=== PATIENT | male | born 1995 | race Caucasian/White ===

== ENCOUNTER 2018-04-08 14:11 | Inpatient (IN) | payer BC ==
[2018-04-08] MEDS ORDERED: NS 1,000 ML IV ONE (15:12)
--- NOTE | 2018-04-08 15:12 | EDPHY ---
H & P Stated Complaint: Blood in stool/abd pain Time Seen by Provider: 04/08/18 15:12 HPI/ROS: HPI CHIEF COMPLAINT: Abdominal pain, GI bleed. HISTORY OF PRESENT ILLNESS: 22-year-old male presents emergency room with abdominal pain. He reports over the past 2-3 weeks he has had bright red blood per rectum almost every time use the bathroom. Form stools. His bright red blood per rectum is gotten worse over the past 3 days. He is due to follow up with GI on May 12 for colonoscopy. He initially went to his primary care doctor for this problem referred to GI GI salt him and scheduled a colonoscopy for May 12. Patient denies any chest pain or shortness of breath. Main complaint blood red blood per rectum. Also distally complains of abdominal pain. Past Medical History: Denies medical history Past Surgical History: Denies surgical history Social History: Denies drugs alcohol tobacco. [employer] student. Family History: Noncontributory ROS REVIEW OF SYSTEMS: 10 Systems were reviewed and negative with the exception of the elements mentioned in the history of present illness. Exam Constitutional nontoxic appearance, triage nursing summary reviewed, vital signs reviewed, awake/alert. Eyes normal conjunctivae and sclera, EOMI, PERRLA. HENT normal inspection, atraumatic, moist mucus membranes, no epistaxis, neck supple/ no meningismus, no raccoon eyes. Respiratory clear to auscultation bilaterally, normal breath sounds, no respiratory distress, no wheezing. Cardiovascular rate normal, regular rhythm, no murmur, no edema, distal pulses normal. Gastrointestinal mild tender palpation periumbilical, no rebound, no guarding, normal bowel sounds, no distension, no pulsatile mass. Genitourinary no CVA tenderness. Musculoskeletal no midline vertebral tenderness, full range of motion, no calf swelling, no tenderness of extremities, no meningismus, good pulses, neurovascularly intact. Skin pink, warm, & dry, no rash, skin atraumatic. Neurologic awake, alert and oriented x 3, AAOx3, moves all 4 extremities equally, motor intact, sensory intact, CN II-XII intact, normal cerebellar, normal vision, normal speech. Psychiatric normal mood/affect. Heme/Lymph/Immune no lymphadenopathy. Differential Diagnosis: Differential diagnosis includes but is not limited to and in no particular order: Bowel obstruction, appendicitis, gallbladder disease, diverticulitis, colitis, enteritis, perforated viscus, gastritis, GERD , esophagitis, urinary tract infection, pyelonephritis, kidney stones, acute GI bleed. Medical Decision Making: Plan for this patient IV establishment with blood draw , type and screen, IV fluids, CT scan abdomen pelvis with IV contrast. Re-evaluation: CT scan abdomen pelvis with IV contrast called to me by Dr. Brock Jonas. This shows duodenal inflammation on CT. No evidence of acute appendicitis. No significant colitis seen on CT. Patient was able to provide a stool sample. Mainly bloody. Occult stool bloody. Plan for hospital admission. Patient all about a give us a bloody stool. Mainly blood bright red blood. Patient H&H are stable. Patient's vital signs are hemodynamically stable no acute distress. Patient resting comfortably. Abdomen soft nontender. Blood work and CT reviewed Recommend hospital admission for ongoing GI bleed I have consult Dr. Hernandez. He agrees for admission. Patient agrees for admission Will consult GI. I have consult Dr. Rider is at 6:25 p.m.. Will consult on the patient. Patient updated agrees for admission. Source: Patient - Personal History Current Tetanus/Diphtheria Vaccine: Yes - Medical/Surgical History Hx Asthma: No Hx Chronic Respiratory Disease: No Hx Diabetes: No Hx Cardiac Disease: No Hx Renal Disease: No Hx Cirrhosis: No Hx Alcoholism: No Other PMH: Denies - Social History Smoking Status: Never smoked Constitutional: Initial Vital Signs Temperature (C) 36.9 C 04/08/18 14:24 Heart Rate 102 H 04/08/18 14:24 Respiratory Rate 18 04/08/18 14:24 Blood Pressure 155/90 H 04/08/18 14:24 O2 Sat (%) 100 04/08/18 14:24 O2 Delivery Mode Room Air Allergies/Adverse Reactions: No Known Allergies Allergy (Unverified 04/08/18 14:26) Home Medications: Medication Instructions Recorded NK [No Known Home Meds] 04/08/18 Medical Decision Making - Diagnostics Imaging Results: Imaging Impressions Abdomen CT 04/08/18 15:17 Impression: Transmural wall thickening of the third and fourth portions of the duodenum and proximal jejunum, potentially related to enteritis. No peritoneal free fluid or air. Results called to Dr. Ozzy Lambert at the time of the interpretation. - Data Points Laboratory Results: Laboratory Results 04/08/18 15:17 04/08/18 15:17 04/08/18 04/08/18 04/08/18 17:25 15:20 15:17 WBC RBC Hgb Hct MCV MCH MCHC RDW Plt Count MPV Neut % (Auto) Lymph % (Auto) [place] % (Auto) Eos % (Auto) Baso % (Auto) Nucleat RBC Rel Count Absolute Neuts (auto) Absolute Lymphs (auto) Absolute Monos (auto) Absolute Eos (auto) Absolute Basos (auto) Absolute Nucleated RBC Immature Gran % Immature Gran # PT INR APTT VBG Lactic Acid Sodium Potassium Chloride Carbon Dioxide Anion Gap BUN Creatinine Estimated GFR Glucose Calcium Total Bilirubin Conjugated Bilirubin Unconjugated Bilirubin AST ALT Alkaline Phosphatase Total Protein Albumin Lipase Urine Color YELLOW Urine Appearance CLEAR Urine pH 6.0 (5.0-7.5) Ur Specific [place] 1.025 (1.002-1.030) Urine Protein NEGATIVE (NEGATIVE) Urine Ketones NEGATIVE (NEGATIVE) Urine Blood NEGATIVE (NEGATIVE) Urine Nitrate NEGATIVE (NEGATIVE) Urine Bilirubin NEGATIVE (NEGATIVE) Urine Urobilinogen NEGATIVE EU EU (0.2-1.0) Ur Leukocyte Esterase NEGATIVE (NEGATIVE) Urine Glucose NEGATIVE (NEGATIVE) Stool Occult Bld Scrn POSITIVE H (NEGATIVE) Patient ABO/Rh A POSITIVE Antibody Screen NEGATIVE 04/08/18 04/08/18 04/08/18 15:17 15:17 15:17 WBC 7.05 10^3/uL 10^3/uL (3.80-9.50) RBC 4.79 10^6/uL 10^6/uL (4.40-6.38) Hgb 15.0 g/dL g/dL (13.7-17.5) Hct 43.3 % % (40.0-51.0) MCV 90.4 fL fL (81.5-99.8) MCH 31.3 pg pg (27.9-34.1) MCHC 34.6 g/dL g/dL (32.4-36.7) RDW 13.1 % % (11.5-15.2) Plt Count 289 10^3/uL 10^3/uL (150-400) MPV 9.1 fL fL (8.7-11.7) Neut % (Auto) 62.0 % % (39.3-74.2) Lymph % (Auto) 21.3 % % (15.0-45.0) [place] % (Auto) 12.5 % % (4.5-13.0) Eos % (Auto) 3.3 % % (0.6-7.6) Baso % (Auto) 0.6 % % (0.3-1.7) Nucleat RBC Rel Count 0.0 % % (0.0-0.2) Absolute Neuts (auto) 4.38 10^3/uL 10^3/uL (1.70-6.50) Absolute Lymphs (auto) 1.50 10^3/uL 10^3/uL (1.00-3.00) Absolute Monos (auto) 0.88 10^3/uL H 10^3/uL (0.30-0.80) Absolute Eos (auto) 0.23 10^3/uL 10^3/uL (0.03-0.40) Absolute Basos (auto) 0.04 10^3/uL 10^3/uL (0.02-0.10) Absolute Nucleated RBC 0.00 10^3/uL 10^3/uL (0-0.01) Immature Gran % 0.3 % % (0.0-1.1) Immature Gran # 0.02 10^3/uL 10^3/uL (0.00-0.10) PT 13.9 SEC SEC (12.0-15.0) INR 1.05 (0.83-1.16) APTT 29.3 SEC SEC (23.0-38.0) VBG Lactic Acid Sodium 142 mEq/L mEq/L (135-145) Potassium 4.1 mEq/L mEq/L (3.5-5.2) Chloride 104 mEq/L mEq/L (97-110) Carbon Dioxide 28 mEq/l mEq/l (22-31) Anion Gap 10 mEq/L mEq/L (6-14) BUN 15 mg/dL mg/dL (7-23) Creatinine 0.9 mg/dL mg/dL (0.7-1.3) Estimated GFR > 60 Glucose 76 mg/dL mg/dL (70-100) Calcium 9.5 mg/dL mg/dL (8.5-10.4) Total Bilirubin 0.8 mg/dL mg/dL (0.1-1.4) Conjugated Bilirubin 0.2 mg/dL mg/dL (0.0-0.5) Unconjugated Bilirubin 0.6 mg/dL mg/dL (0.0-1.1) AST 20 IU/L IU/L (17-59) ALT 21 IU/L IU/L (21-72) Alkaline Phosphatase 83 IU/L IU/L (38-126) Total Protein 7.5 g/dL g/dL (6.3-8.2) Albumin 4.5 g/dL g/dL (3.5-5.0) Lipase 48 IU/L IU/L (23-300) Urine Color Urine Appearance Urine pH Ur Specific [place] Urine Protein Urine Ketones Urine Blood Urine Nitrate Urine Bilirubin Urine Urobilinogen Ur Leukocyte Esterase Urine Glucose Stool Occult Bld Scrn Patient ABO/Rh Antibody Screen 04/08/18 15:17 WBC RBC Hgb Hct MCV MCH MCHC RDW Plt Count MPV Neut % (Auto) Lymph % (Auto) [place] % (Auto) Eos % (Auto) Baso % (Auto) Nucleat RBC Rel Count Absolute Neuts (auto) Absolute Lymphs (auto) Absolute Monos (auto) Absolute Eos (auto) Absolute Basos (auto) Absolute Nucleated RBC Immature Gran % Immature Gran # PT INR APTT VBG Lactic Acid 1.3 mmol/L mmol/L (0.7-2.1) Sodium Potassium Chloride Carbon Dioxide Anion Gap BUN Creatinine Estimated GFR Glucose Calcium Total Bilirubin Conjugated Bilirubin Unconjugated Bilirubin AST ALT Alkaline Phosphatase Total Protein Albumin Lipase Urine Color Urine Appearance Urine pH Ur Specific [place] Urine Protein Urine Ketones Urine Blood Urine Nitrate Urine Bilirubin Urine Urobilinogen Ur Leukocyte Esterase Urine Glucose Stool Occult Bld Scrn Patient ABO/Rh Antibody Screen Microbiology Results: MICROBIOLOGY 04/08/18 17:15 Stool Gastrointestinal Tract Panel (PCR) - Final No Organism Detected By Pcr Medications Given: Sodium Chloride (Ns) 1,000 mls @ 75 mls/hr IV CONT DEANN Stop: 10/05/18 18:29 Last Admin: 04/08/18 22:24 Dose: 1,000 mls Discontinued Medications Sodium Chloride (Ns) 1,000 mls @ 0 mls/hr IV EDNOW ONE; Wide Open PRN Reason: Protocol Stop: 04/08/18 15:13 Last Admin: 04/08/18 15:26 Dose: 1,000 mls Pantoprazole Sodium (Protonix) 40 mg IVP ONCE ONE Stop: 04/08/18 16:42 Last Admin: 04/08/18 16:53 Dose: 40 mg Departure - Departure Disposition: [facility] In[facility] Acute Clinical Impression: Abdominal pain, GI bleed Condition: Good
[2018-04-08 15:40] LABS: PLATELET COUNT 289 10^3/uL (150-400)
[2018-04-08 15:47] LABS: INR 1.05 (0.83-1.16); PROTIME(PATIENT) 13.9 SEC (12.0-15.0)
[2018-04-08] MEDS ORDERED: IOPAMIDOL (ISOVUE 370) 100 ML BTL IV ONE (16:19)
[2018-04-08] MEDS ORDERED: PANTOPRAZOLE SODIUM 40 MG VIAL IVP ONE (16:41)
[2018-04-08] MEDS ORDERED: ONDANSETRON 4 MG/2 ML VIAL IVP PRN (18:17)
[2018-04-08] MEDS ORDERED: ACETAMINOPHEN 325 MG TAB PO PRN (18:17)
[2018-04-08] MEDS ORDERED: ZOLPIDEM TARTRATE 5 MG TAB PO PRN (18:17)
--- NOTE | 2018-04-08 22:03 | PDGENHP ---
History and Physical History and Physical: CC: Rectal bleeding and abdominal pain HISTORY: This patient 1st presented to his primary care office on March 31 with lower abdominal pain left and right aggravated by eating food. He was noticing some blood mixed in with stool. Referral was set up for endoscopic evaluation at the local gastroenterology group. He comes into the ER at this time complaining of significant increase in the pace of bleeding over the last couple of days with bright red blood and clots passing frequently. He describes his pain at this time as being sharp and crampy, intermittent, across the lower abdomen, aggravated by eating. He denies fevers, rash, joint pains, oral ulcerations, ocular pains or symptoms , genital ulcers, or other extraintestinal symptoms at this time. He has never had previous GI bleed or abdominal pain episodes. There is no family history of digestive, abdominal, or other related illnesses other than an aunt with rheumatoid arthritis. He does not take nonsteroidal anti-inflammatories other than a rare Advil which has not been recent. He is not a significant drinker of alcohol. He has not traveled outside the [place]. 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 This is comprised of slightly raised round to oval lesions with no blistering scaling, fairly well demarcated. 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 There is notably some diffuse transmural wall thickening from probably mid duodenum into proximal jejunum. The rest of the bowel appears normal. No signs of obstruction. There are no adenopathy masses or other signs of malignancy specifically. No ascites. No signs of liver disease or portal hypertension ASSESSMENT: * Acute GI bleeding with hematochezia of red blood and clots, ongoing for 2 weeks but increasing in pay significantly last couple days * Crampy lower abdominal pain with unremarkable examination * Suspicion for proximal small bowel enteritis based on CT scan with transmural thickening of duodenum and proximal jejunum * Stable vital signs and blood counts at this time Differential diagnosis could include autoimmune bowel disease, infectious disease, ulcer disease. Vascular abnormalities would also be in the differential diagnosis though those are usually not painful. Ischemia would be unlikely at his age. Notably the presentation is most consistent with lower bleeding given the significant amount of ongoing red blood and clots with normal vital signs and blood counts after 2 weeks, but the main CT finding is inflammatory appearing changes of the proximal small bowel. His pain would suggest a lower bowel source of pain. Findings consistent with problems in both the proximal and distal bowel would be more consistent with autoimmune or infectious illness. PLANS: * [employer] Potato [employer] to the hospital at this time * IV fluids for hydration * Follow blood counts closely * Clear liquid diet at this time * Gastroenterology was contacted by the emergency room and they will be seeing the patient; expect endoscopies will be recommended * Avoid NSAIDs * I have reviewed the patient's case in detail with Dr. Ozzy Lambert I have reviewed the patient's past medical records as part of this assessment, including clinic records from earlier this month when he initially presented with pain and bleeding
[2018-04-08] MEDS: NS 1,000 ML IV SCH (22:24)
[2018-04-09] MEDS: MELATONIN 3 MG TAB PO SCH ×2 (02:07→23:42)
[2018-04-09 04:54] LABS: PLATELET COUNT 273 10^3/uL (150-400)
--- NOTE | 2018-04-09 10:17 | ASMTCMCOM ---
CM Note CM Note Notes: Pt is a 22 yo M, presents with GI bleed. No therapies are ordered at this time. 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 I anticipate pt will be discharged independent. CM available if needs arise. Plan: Independent. Date Signed: 04/09/2018 10:17 AM Electronically Signed By:SUE Torres
[2018-04-09] MEDS: NS 1,000 ML IV SCH (12:19)
[2018-04-09] MEDS ORDERED: PEG 3350/NA SULF,BICARB,CL/KCL (GAVILYTE-G) 4000 ML BTL PO ONE (13:39)
--- NOTE | 2018-04-09 14:45 | GCON ---
DATE OF CONSULTATION: 04/09/2018 CHIEF COMPLAINT: Rectal bleeding. HPI: I am asked to see this patient in consultation by Dr. Hernandez for a chief complaint of rectal bl eeding. Patient is a 22-year-old seen by our physician treasury assistant, Judy Godfrey PA-C, this month fo r a patient with abdominal pain and bleeding, which has been ongoing for several weeks. He describes bright red blood into the toilet paper, which he thinks has been getting worse and so presented to [facility] emergency room. CT scan was done that showed thickening involving the distal duodenum and jejunum . The patient has been having diarrhea, although less lately as he has been eating less, but last mckenzie wel movement was last night with bright red blood. There has been no melena. He thinks overall his abdominal pain, which he feels generally in the lower area, has been somewhat better. No nausea, vom iting, or GERD. No fevers or chills. People have had the flu but no other sick contacts that he has been around. No family history for colitis or Crohn disease. No joint pains or rashes. ALLERGIES: No reported allergies. MEDICATIONS: No medications at home. PAST MEDICAL HISTORY: None. SOCIAL HISTORY: Smoker. FAMILY HISTORY: Negative for IBD. PHYSICAL EXAM: VITAL SIGNS: Afebrile at 36.6, BP 120/73, pulse 74. CONSTITUTIONAL: Alert and orie nted. EYES: No scleral icterus. HEENT: No oral lesions. CARDIOVASCULAR: Regular rhythm. CHEST: Clear to auscultation. ABDOMEN: Soft, nontender. No hepatosplenomegaly. NEUROLOGIC: Grossly non focal. SKIN: No active skin rashes. LABORATORY/IMAGING DATA: BUN and creatinine are 15 and 0.9. Hematocrit has been stable. This morni ng is 39%. Platelets are 273. White count is 7. Sedimentation rate is normal at 7. CT scan as per HPI. ASSESSMENT: 1. Bright red blood per rectum. However, patient is not having significant GI bleed. He is hemodyn amically stable with normal hematocrit. 2. Diarrhea. 3. Abnormal CT scan. This is suggesting more involvement of the small bowel. However, GI path pane l is negative. Differential diagnosis would include either viral enteritis that was not detected by the GI path panel or consider inflammatory bowel disease somewhat acute onset. Discussed with the p atient and the family diagnostic options such as an upper and lower endoscopy with biopsy. Also disc ussed that in the acute setting, it can still be difficult to assess or differentiate the difference between acute infectious process and acute onset of Crohn's, but given his bleeding the patient would like to proceed with endoscopic evaluation. Would like to do it while here in the hospital. PLAN: Will prep for upper and lower endoscopy to be done tomorrow with anesthesia to obtain biopsies . Likely can be discharged home tomorrow. /[id number]/MODL
--- NOTE | 2018-04-09 15:06 | HOSPPROG ---
Hospitalist Progress Note Assessment/Plan: # upper and lower bowel symptoms - proximal small bowel thickening and BRBPR, negative GI PCR - most c/w Crohns, although other etiologies possible - plan egd and colonoscopy tomorrow by dr mcclelland # abd pain - d/t the above Subjective: still mild abd pain Objective: Vital Signs Temp Pulse Resp BP Pulse Ox 36.6 C 74 12 123/73 H 97 04/09/18 11:06 04/09/18 11:06 04/09/18 11:06 04/09/18 11:06 04/09/18 11:06 Laboratory Results 04/09/18 04:23 04/08/18 04/09/18 04/10/18 05:59 05:59 05:59 Intake Total 1000 Balance 1000 PT 13.9 SEC (12.0-15.0) 04/08/18 15:17 INR 1.05 (0.83-1.16) 04/08/18 15:17 chart reivewed discussed with dr mcclelland ct reviewed - Physical Exam Constitutional: no apparent distress, appears nourished Cardiovascular: regular rate and rhythym, no murmur, rub, or gallop, systolic murmur Respiratory: no respiratory distress, no rales or rhonchi, clear to auscultation Gastrointestinal: other (soft, mild TTP), No no palpable masses, No guarding, No rebound, No distension ICD10 Worksheet Patient Problems: Problems Problem Status Onset Abdominal pain Acute GI bleed Acute
--- NOTE | 2018-04-09 15:37 | PDMN ---
Medical Necessity Medical necessity: Change to inpt as of 04/09/18 @ 15:06 peer MD order and MCG M- 182, Gastrointestinal Bleeding, Lower, A-2 days. 22 y/o presented w/rectal bleeding and abd pain, admitted w/GI bleeding w/hematochezia. Upgraded to inpt for ongoing bleeding per rectum w/decreasing hct, persistent abd pain, further eval needed, GI consult, colonoscopy and EGD tomorrow. Est LOS>2MN for ongoing management of above.
[2018-04-10] MEDS ORDERED: LR 1,000 ML IV ONE (09:33)
--- NOTE | 2018-04-10 09:53 | PDANEPAE ---
ANE History of Present Illness Colonoscopy,EGD ANE Past Medical History - Pulmonary History Hx Oxygen in Use at Home: No Hx Sleep Apnea: No Sleep Apnea Screening Result - Last Documented: Negative - Endocrine History Hx Diabetes: No - GI History Hx Gastrointestinal Disorders: Yes Gastrointestinal History Comment: Bleeding - Chronic Pain History Chronic Pain: No ANE Review of Systems Review of systems is: negative Review of Systems: - Exercise capacity Exercise capacity: >=4 METS ANE Patient History - Allergies Allergies/Adverse Reactions: No Known Allergies Allergy (Unverified 04/08/18 14:26) - Home Medications Home medications: home medication list seen and reviewed Home Medications: NK [No Known Home Meds] 04/08/18 [Last Taken Unknown] - NPO status NPO Since - Liquids (Date): 04/10/18 NPO Since - Liquids (Time): 00:00 NPO Since - Solids (Date): 04/08/18 NPO Since - Solids (Time): 00:00 - Anes Hx Anes Hx: no prior problems - Smoking Hx Smoking Status: Never smoked - Family Anes Hx Family Anes Hx: none ANE Labs/Vital Signs - Labs Result Diagrams: 04/09/18 04:23 04/08/18 15:17 - Vital Signs Vital Signs: reviewed preoperatively; see RN documention for details Blood Pressure: 119/73 Heart Rate: 88 Respiratory Rate: 16 O2 Sat (%): 98 Height: 182.88 cm Weight: 63.503 kg ANE Physical Exam - Airway Neck exam: FROM Mallampati Score: Class 1 Mouth exam: normal dental/mouth exam - Pulmonary Pulmonary: no respiratory distress - Cardiovascular Cardiovascular: regular rate and rhythym - ASA Status ASA Status: II ANE Anesthesia Plan Total IV Anesthesia: Yes
[2018-04-10] MEDS ORDERED: LIDOCAINE 2% 100 MG/5 ML SYR ONE (10:05)
[2018-04-10] MEDS ORDERED: PROPOFOL/EMULSION 500 MG/50 ML BOTTLE IV ONE (10:05)
[2018-04-10] MEDS ORDERED: fentaNYL 100 MCG/2 ML INJ IVP PRN (10:17)
[2018-04-10] MEDS ORDERED: oxyCODONE IR 5 MG TAB PO PRN (10:17)
[2018-04-10] MEDS ORDERED: DEXAMETHASONE 4 MG/ML VIAL IVP PRN (10:17)
[2018-04-10] MEDS ORDERED: PROMETHAZINE HCL 25 MG/ML INJ IVP PRN (10:17)
[2018-04-10] MEDS ORDERED: NALOXONE HCL 0.4 MG/ML INJ IVP PRN (10:17)
[2018-04-10] MEDS ORDERED: MEPERIDINE 25 MG/0.5 ML AMP IVP PRN (10:17)
[2018-04-10] MEDS ORDERED: ONDANSETRON 4 MG/2 ML VIAL IVP PRN (10:17)
[2018-04-10] MEDS ORDERED: HYDROmorphONE/DILAUDID 2 MG/ML INJ IVP PRN (10:17)
--- NOTE | 2018-04-10 10:19 | POSTANESTH ---
Post Anesthetic Evaluation Cardiovascular Status: Normal, Stable, Similar to Pre-Op Cond Respiratory Status: Normal, Stable, Similar to Pre-op Cond. Level of Consciousness/Mental Status: Can Participate in Eval, Moderately Sleepy Pain Control: Adequate, Prn Tx Ordered Nausea/Vomiting Control: Adequate, Prn Tx Ordered Complications Possibly Related to Anesthesia: None Noted
--- NOTE | 2018-04-10 10:33 | PDGENHP ---
History & Physical Chief Complaint: brbpr History of Present Illness: diarrhea and abd pain Relevant Physical Exam: cv [id number] nl. chest CTA. abd + bs soft. asa11
--- NOTE | 2018-04-10 10:37 | GIREPORT ---
[facility] - Endoscopy Department Patient Name: Dontrell Navarro Procedure Date: 04/10/2018 9:44 AM Patient Type: Inpatient Attending MD/ ER Physician: Nataliia Robertson MD Procedure: Upper GI endoscopy Indications: Generalized abdominal pain, Abnormal CT of the GI tract Providers: Nataliia Robertson MD Medicines: Monitored Anesthesia Care Complications: No immediate complications. Description of Procedure: After obtaining informed consent, the endoscope was passed under direct vision. Throughout the procedure, the patient's blood pressure, pulse, and oxygen saturations were monitored continuously. The Endoscope was intro duced through the mouth, and advanced to the fourth part of duodenum. The [facility] er GI endoscopy was accomplished without difficulty. The patient tolerated th e procedure well. Findings: The esophagus was normal. Mildly erythematous mucosa without bleeding was found in the gastric an trum. Biopsies were taken with a cold forceps for histology. Estimated blood loss was minimal. Mildly erythematous mucosa without active bleeding and with no stigmata of bleeding was found in the third portion of the duodenum. Biopsies were taken with a cold forceps for histology. Estimated blood loss was minimal. Estimated Blood Loss: Estimated blood loss was minimal. Post Op Diagnosis: - Normal esophagus. - Erythematous mucosa in the antrum. Biopsied. - Erythematous duodenopathy. Biopsied. Recommendation: - Await path results. - Return patient to [facility] for [facility] care. - Consider PPI if active inflammation on biopsy. - OK to discharge home. - Will sign off - Thank you for allowing me to participate in the care of your patient. - Advance diet as tolerated. Attending Participation: I personally performed the entire procedure. Nataliia Robertson MD Nataliia Robertson MD 04/10/2018 10:37:18 AM This report has been signed electronicallyNataliia Robertson MD Number of Addenda: 0 Note Initiated On: 04/10/2018 9:44 AM [email or web address]
--- NOTE | 2018-04-10 10:40 | GIREPORT ---
[facility] - Endoscopy Department Patient Name: Dontrell Navarro Procedure Date: 04/10/2018 10:13 AM Patient Type: Inpatient Attending MD/ ER Physician: Nataliia Robertson MD Procedure: Colonoscopy Indications: Generalized abdominal pain, Clinically significant diarrhea of unexplai lm origin, Hematochezia Providers: Nataliia Robertson MD Medicines: Monitored Anesthesia Care Complications: No immediate complications. Description of Procedure: After obtaining informed consent, the scope was passed under direct vis ion. Throughout the procedure, the patient's blood pressure, pulse, and oxyg en saturations were monitored continuously. The Colonoscope with irrigatio n channel was introduced through the anus and advanced to the terminal il eum. The colonoscopy was performed without difficulty. The patient tolerated the procedure well. The quality of the bowel preparation was good. The term inal ileum, ileocecal valve, appendiceal orifice, and rectum were photograph ed. Findings: The perianal and digital rectal examinations were normal. A segmental area of moderately congested, erythematous, granular, hemorrhagic and inflamed mucosa was found in the sigmoid colon. Biopsie s were taken with a cold forceps for histology. Estimated blood loss was minimal. The terminal ileum appeared normal. A localized area of moderately congested, erythematous, granular, hemorrhagic and inflamed mucosa was found in the distal rectum. Biopsie s were taken with a cold forceps for histology. Estimated blood loss was minimal. Estimated Blood Loss: Estimated blood loss was minimal. Post Op Diagnosis: - Congested, erythematous, granular, hemorrhagic and inflamed mucosa in the sigmoid colon. Biopsied. - The examined portion of the ileum was normal. - Congested, erythematous, granular, hemorrhagic and inflamed mucosa in the distal rectum. Biopsied. Recommendation: - Await path results. - Return patient to [facility] for ongoing care. - Consider steroids as guided by path. - Return to physician personalized living assistant in 4 weeks. - Thank you for allowing me to participate in the care of your patient. - Advance diet as tolerated. Attending Participation: I personally performed the entire procedure. 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
[2018-04-10 11:19] VITALS: BP 136/85
--- NOTE | 2018-04-10 11:34 | HOSPPROG ---
Hospitalist Progress Note Assessment/Plan: # upper and lower bowel symptoms - proximal small bowel thickening and BRBPR, negative GI PCR - most c/w Crohns, although other etiologies possible - s/p egd and colonoscopy with Dr Robertson, reviewed the results w her, will not dc on steroids -continue a PPI # abd pain - d/t the above -non during my interview, feels bloated #plan: if eating and drinking ok, can dc home. Dr Robertson will f/u with him about the biopsies and then determine treatment. Will send a script to [facility] in the hospital for his PPI. Reviewed care w the patient, his parents , and friend at the bedside. Explained no driving for next 24 hours and someone should stay w him since her relieved sedation. Subjective: Jose Luis has no complaints, bit sleepy from the procedure. Objective: Vital Signs Temp Pulse Resp BP Pulse Ox 36.3 C 73 16 136/85 H 98 04/10/18 11:17 04/10/18 11:17 04/10/18 11:17 04/10/18 11:17 04/10/18 11:17 04/09/18 04/10/18 04/11/18 05:59 05:59 05:59 Intake Total 1375 650 Output Total 0 Balance 1375 650 PT 13.9 SEC (12.0-15.0) 04/08/18 15:17 INR 1.05 (0.83-1.16) 04/08/18 15:17 - Physical Exam Constitutional: no apparent distress, appears nourished Eyes: PERRL Ears, Nose, Mouth, Throat: hearing normal Cardiovascular: regular rate and rhythym Respiratory: no respiratory distress Gastrointestinal: normoactive bowel sounds, soft, non-tender abdomen Skin: warm, No normal color (pale) Neurologic: AAOx3 Psychiatric: interacting appropriately ICD10 Worksheet Patient Problems: Problems Problem Status Onset Abdominal pain Acute GI bleed Acute
--- NOTE | 2018-04-10 12:31 | GDS ---
DISCHARGE DIAGNOSIS: 1. Upper and lower bowel symptoms, most consistent with Crohn's, but other etiologies are possible. 2. Abdominal pain due to this. CONSULTATION: Dr. Nataliia Robertson. 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 He came to the emergency room with chief complaint of rectal bleeding and had associated abdominal pain which has been going on for several weeks. He had a CT scan that w as performed that showed thickening involving the distal duodenum and jejunum. He also had been havi ng diarrhea. He was seen and evaluated by Dr. Robertson. He had an upper GI endoscopy performed husam t showed a normal esophagus. He has erythematous mucosae in the antrum that were biopsied and erythe matous duodenopathy. Recommendation was to keep him on a PPI. In addition, he had a colonoscopy per formed that showed a congested erythematous granular hemorrhagic inflamed mucosa in the sigmoid colon as well as the distal rectum. These areas were also biopsied. The recommendation is for him to be discharged home. Depending on the pathology, Dr. Robertson may discuss steroids. I reviewed these f indings with the patient and his family, and he will be discharged home with close followup with her. HOSPITAL COURSE BY PROBLEM: 1. Upper and lower bowel symptoms with proximal thickening and bright red blood per rectum. He had a GI PCR that is negative, and this is most consistent with Crohn's, although other etiologies are po ssible. Further followup with Dr. Robertson. 2. Abdominal pain. He is feeling bloated but not having pain during my evaluation. DISCHARGE CONDITION: Stable. Blood pressure is 136/85, heart rate is 73, respiratory rate is 16, O2 sats on room air 98%, temperature 36.3 Celsius. MEDICATIONS AT DISCHARGE: Please see the EMR. DISCHARGE INSTRUCTIONS: 1. To make sure he follows up with Dr. Robertson. 2. If he develops fever, chills, worsening abdominal pain, or ongoing blood when he is having bowel movements, to return to the ER. /[id number]/MODL
== END 2018-04-10 13:58 | disposition home or self-care (01) | DRG 387 ==
LOC: F3E 19:38 → OBSVTOIN 04-09 15:06
PROVIDERS: ADMIT Internal Medicine; ATTEND Internal Medicine
PROC: 0DB68ZX Excision of Stomach, Via Natural or Artificial Opening Endoscopic, Diagnostic (ICD-10-PCS; principal; 2018-04-10 10:00)
PROC: 0DB98ZX Excision of Duodenum, Via Natural or Artificial Opening Endoscopic, Diagnostic (ICD-10-PCS; principal; 2018-04-10 10:00)
PROC: 0DBP8ZX Excision of Rectum, Via Natural or Artificial Opening Endoscopic, Diagnostic (ICD-10-PCS; principal; 2018-04-10 10:00)
PROC: 0DBN8ZX Excision of Sigmoid Colon, Via Natural or Artificial Opening Endoscopic, Diagnostic (ICD-10-PCS; principal; 2018-04-10 10:00)
DX: K50.911 Crohn's disease, unspecified, with rectal bleeding (principal); F17.210 Nicotine dependence, cigarettes, uncomplicated
CPT/HCPCS: 96374; G0378; J2001; J2405; J2704; Q9967